=== PATIENT | male | born 1985 | race Caucasian/White ===

== ENCOUNTER 2022-03-14 01:40 | Emergency (ER) | payer SELFPAY ==
[~2022-03-14] VITALS: Ht 157.5 cm; Wt 91.6 kg
[2022-03-14 02:05] VITALS: BP 162/106
--- NOTE | 2022-03-14 02:51 | NUR ---
Dr. Rodgers examining patient.
[2022-03-14 03:12] VITALS: BP 154/93
== END 2022-03-14 02:51 | disposition home or self-care (01) ==
LOC: MED 01:40
DX: T16.2XXA Foreign body in left ear, initial encounter (principal); X58.XXXA Exposure to other specified factors, initial encounter; Y93.89 Activity, other specified; Y92.89 Other specified places as the place of occurrence of the external cause; Y99.8 Other external cause status
CPT/HCPCS: 69210; 99284